=== PATIENT | female | born 1960 | race Caucasian/White ===

== ENCOUNTER 2019-03-10 16:03 | Emergency (ER) | payer OTHER ==
[~2019-03-10] VITALS: Ht 160 cm; Wt 76.2 kg
== END 2019-03-10 19:24 | disposition home or self-care (01) ==
LOC: ER 16:03
DX: S00.83XA Contusion of other part of head, initial encounter (principal); S81.821A Laceration with foreign body, right lower leg, initial encounter; W18.09XA Striking against other object with subsequent fall, initial encounter; Y93.89 Activity, other specified; Y92.098 Other place in other non-institutional residence as the place of occurrence of the external cause; Y99.8 Other external cause status